=== PATIENT | female | born 1970 | race Caucasian/White ===

== ENCOUNTER → 2021-01-04 15:18 | Outpatient (CLI) | payer BC, SELFPAY ==
--- NOTE | ~2021-01-04 | MM_ITS ---
EXAMINATION: MM screening jony BI w connie HISTORY: Screening mammogram TECHNIQUE: Craniocaudal and mediolateral oblique 3-D tomosynthesis images were obtained and synthetic 2-D images were generated. CAD analysis was submitted and interpreted. COMPARISON: No prior mammogram is available for comparison at this institution. BREAST PARENCHYMAL COMPOSITION: There are scattered areas of fibroglandular density. FINDINGS: There is no evidence of suspicious mass, calcification, or architectural distortion to sugg est malignancy in either breast. IMPRESSION: 1. No mammographic evidence of malignancy. 2. Recommend routine screening mammography in one year. BI-RADS Category 1: Negative Reviewed, dictated and finalized at location [facility].
== END ==
PROVIDERS: PCP Internal Medicine; Visit Provider Internal Medicine
DX: Z12.31 Encounter for screening mammogram for malignant neoplasm of breast (principal)
CPT/HCPCS: 77063; 77067

== ENCOUNTER → 2021-03-17 10:50 | Outpatient (CLI) | payer BC, SELFPAY ==
--- NOTE | ~2021-03-17 | US_ITS ---
US pelvic complete w TV DATE: 03/17/2021 11:16 INDICATION: Menorrhagia; excessive bleeding during menstrual periods TECHNIQUE: Real-time imaging via transabdominal and transvaginal approaches COMPARISON: None FINDINGS: The uterus measures 10 cm height, 5 cm AP and 5.8 cm transverse dimension. The central endo metrial echo complex measures 8-9 mm. There are multiple uterine fibroids, the uterus having inhomogeneous echotexture. The ovaries are not demonstrated. No pelvic mass or abnormal pelvic fluid collection is detected. IMPRESSION: Probable uterine fibroids Reviewed, dictated and finalized at [facility]. Reviewed, dictated and finalized at location [facility]. IMPRESSION: Probable uterine fibroids
== END ==
PROVIDERS: PCP Internal Medicine; Visit Provider Physician Assistant
DX: N92.0 Excessive and frequent menstruation with regular cycle (principal)
CPT/HCPCS: 76830; 76856

== ENCOUNTER → 2022-10-23 13:09 | Outpatient (CLI) | payer BC, SELFPAY ==
--- NOTE | ~2022-10-23 | MM_ITS ---
EXAMINATION: MM screening jony BI w connie HISTORY: Screening mammogram TECHNIQUE: Craniocaudal and mediolateral oblique 3-D tomosynthesis images were obtained and synthetic 2-D images were generated. CAD analysis was submitted and interpreted. COMPARISON: 01/04/2021 bilateral screening mammogram BREAST PARENCHYMAL COMPOSITION: There are scattered areas of fibroglandular density. FINDINGS: There is no evidence of suspicious mass, calcification, or architectural distortion to sugg est malignancy in either breast. There has been no suspicious interval change. IMPRESSION: 1. No mammographic evidence of malignancy. 2. Recommend routine screening mammography in one year. BI-RADS Category 1: Negative Reviewed, dictated and finalized at location [facility].
== END ==
PROVIDERS: PCP Internal Medicine; Visit Provider Physician Assistant
DX: Z12.31 Encounter for screening mammogram for malignant neoplasm of breast (principal)
CPT/HCPCS: 77063; 77067

== ENCOUNTER → 2022-11-06 11:04 | Outpatient (CLI) | payer BC, SELFPAY ==
--- NOTE | ~2022-11-06 | US_ITS ---
Pelvic ultrasound. Clinical History: Excessive and frequent menstruation Technique: Realtime transabdominal and transvaginal scanning of the pelvis was performed. Color flow Doppler and Doppler spectral analysis were performed. Findings: The uterus is anteverted. The endometrial stripe has a thickness of 8 mm. Questional small well-defined posterior wall fibroid measuring 2.3 cm in diameter. Additional questionable ill-define d 1.3 cm fibroid towards the lower uterine segment. Neither ovary seen. No adnexal mass seen. There is no evidence of free fluid in the cul de sac. Impression: Questionable small ill-defined fibroids, as above. Reviewed, dictated and finalized at location [facility]. Impression: Questionable small ill-defined fibroids, as above.
== END ==
PROVIDERS: PCP Internal Medicine; Visit Provider Physician Assistant
DX: N92.0 Excessive and frequent menstruation with regular cycle (principal)
CPT/HCPCS: 76830; 76856

== ENCOUNTER 2024-10-24 12:45 | Outpatient (CLI) | payer BC, SELFPAY ==
--- NOTE | ~2024-10-24 | MM_ITS ---
EXAMINATION: MM screening jony BI w connie HISTORY: Screening TECHNIQUE: Craniocaudal and mediolateral oblique 3-D tomosynthesis images were obtained and synthetic 2-D images were generated. CAD analysis was submitted and interpreted. COMPARISON: No prior mammogram is available for comparison at this institution. BREAST PARENCHYMAL COMPOSITION: Not dense: There are scattered areas of fibroglandular density. FINDINGS: There is no evidence of suspicious mass, calcification, or architectural distortion to sugg est malignancy in either breast. There has been no suspicious interval change. IMPRESSION: 1. No mammographic evidence of malignancy. 2. Recommend routine screening mammography in one year. BI-RADS Category 1: Negative Reviewed, dictated and finalized at location [facility].
== END 2024-10-24 12:46 | disposition home or self-care (01) ==
PROVIDERS: PCP Internal Medicine; Visit Provider Obstetrics & Gynecology
DX: Z12.31 Encounter for screening mammogram for malignant neoplasm of breast (principal)
CPT/HCPCS: 77063; 77067

== ENCOUNTER 2025-07-20 10:43 | Outpatient (CLI) | payer BC, SELFPAY ==
--- NOTE | ~2025-07-20 | MR_ITS ---
EXAMINATION: MR shoulder RT wo con DATE: 07/20/2025 11:17 INDICATION: Right shoulder pain TECHNIQUE: Magnetic resonance imaging (MRI) of the right shoulder was performed without intravenous contrast. Sequences included axial PD-weighted FS FSE, coronal oblique PD-weighted FS FSE, coronal oblique T2-weighted FS FSE, sagittal PD-weighted FS FSE, and sagittal T1-weighted SE. COMPARISON: None. FINDINGS: Coracoacromial arch: The acromion undersurface is curved in morphology (type II). Small anterior and lateral subacromial spurs along the acromial attachment of the normal coracoacromial ligament. Mild to moderate acromioclavicular osteoarthritis with mild subarticular cystlike change along the acromial side of the joint space. Rotator cuff: Moderate supraspinatus and mild infraspinatus tendinopathy. Small intrasubstance tear at the critical zone of the distal conjoined portion of the supraspinatus and infraspinatus tendons. The tear occurs approximately 1-1.5 cm from the footplate measuring 9 mm AP, 7 mm medial to lateral and involving approximately one third of the tendon thickness. The more posterior infraspinatus and teres minor tendons are normal. The subscapularis tendon is normal. Normal rotator cuff muscle bulk and signal. Biceps tendon, glenoid labrum and glenohumeral cartilage: Long head of the biceps tendon is normal. Glenoid labrum is normal. Partial- thickness cartilage loss with smooth chondral surface and without degenerative subchondral changes along the cephalad third of the glenoid along the anteroinferior aspect of the humeral head. Fluid: Physiologic amount of fluid in the glenohumeral joint and biceps tendon sheath. No loose osteochondral bodies. Small amount of fluid in the subacromial/subdeltoid bursa consistent with mild bursitis. Bones: Normal marrow signal with no fracture or pathologic marrow replacing process. IMPRESSION: 1. Mild infraspinatus and moderate supraspinatus tendinopathy with small mild intrasubstance tear at the critical zone of the conjoined portion of the supraspinatus and infraspinatus tendons. 2. 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 3. Mild subacromial/subdeltoid bursitis. Reviewed, dictated and finalized at location [facility]. 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 Mild infraspinatus and moderate supraspinatus tendinopathy with small mild i ntrasubstance tear at the critical zone of the conjoined portion of the suprasp inatus and infraspinatus tendons. 2. 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 3. Mild subacromial/subdeltoid bursitis.
== END 2025-07-20 10:44 | disposition home or self-care (01) ==
LOC: MICIMG 10:44
PROVIDERS: PCP Internal Medicine; Visit Provider Internal Medicine
DX: M19.011 Primary osteoarthritis, right shoulder (principal); M75.51 Bursitis of right shoulder
CPT/HCPCS: 73221